=== PATIENT | female | born 1955 | race Caucasian/White ===

== ENCOUNTER 2017-10-02 02:41 | Outpatient (CLI) | payer BC | END 2017-10-02 23:59 | disposition home or self-care (01) | LOC: DIABETIC 02:41 | PROVIDERS: ATTEND Internal Medicine | DX: E11.9 Type 2 diabetes mellitus without complications (principal) | CPT/HCPCS: G0108 ==

== ENCOUNTER 2017-11-11 02:32 | Outpatient (CLI) | payer BC | END 2017-11-11 23:59 | disposition home or self-care (01) | LOC: DIABETIC 02:32 | PROVIDERS: ATTEND Internal Medicine | DX: E11.9 Type 2 diabetes mellitus without complications (principal) | CPT/HCPCS: G0108 ==

== ENCOUNTER 2018-02-19 02:25 | Outpatient (CLI) | payer BC | END 2018-02-19 23:59 | disposition home or self-care (01) | LOC: DIABETIC 02:25 | PROVIDERS: ATTEND Internal Medicine | DX: E11.9 Type 2 diabetes mellitus without complications (principal); Z79.84 Long term (current) use of oral hypoglycemic drugs; Z91.048 Other nonmedicinal substance allergy status | CPT/HCPCS: G0108 ==